=== PATIENT | female | born 1980 | race Caucasian/White ===

== ENCOUNTER 2025-03-06 19:44 | Emergency (ER) | payer MEDICAID, OTHER ==
[~2025-03-06] VITALS: Ht 165.1 cm; Wt 55.9 kg
[2025-03-06 20:05] VITALS: BP 117/70; PULSE 95; RESP 18; TEMP 98.5; O2SAT 99
--- NOTE | 2025-03-06 20:14 | ED.PDOC ---
History of Present Illness(SKN HPI Comments A 44 year-old female, BIB wheelchair, presents to the ED with a chief complaint of wound to left cobian s/p insect bite days ago. Patient states the insect that bit her is unknown. Patient reports swelling and redness at the site but denies any bleeding or drainage. Patient additionally reports using Peroxide and Neosporin with no associated alleviating factors. Patient has no further complaints at this time and otherwise denies further associated symptoms of N/V, fever, chills, LOC, or chest pain. Vital signs were stable. Chief Complaint: Lower Extremity Time Seen by MD: 20:00 History of Present Illness: Nurses Notes, Medications, Allergies Allergies: Coded Allergies: Amoxicillin (Verified Allergy, Unknown, 03/06/25) Cephalexin (Verified Allergy, Unknown, 03/06/25) Codeine (Verified Allergy, Unknown, 03/06/25) Fentanyl (Verified Allergy, Unknown, 03/06/25) Information Source: Patient Mode of Arrival: Wheelchair Severity: Moderate Timing: Days Duration: Since onset Prehospital treatment: None Location: Other (left cobian) Mechanism: Insect (unknown insect) Retained Foreign Body: No Tetanus: >5 Years (2005 ) Associated Signs and Symptoms: Redness, Swelling Past Medical History PAST MEDICAL HISTORY: Denies Surgical History: Denies all surgeries 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 Family History Family History: Reviewed,noncontributory to illness, No family hx of Cancer, No family hx of DM, No family hx of Heart lina, No family hx of HTN, No family hx ofKidney lina, No family hx of Liver lina, No family hx of Lung lina, No family hx of Stroke Social History Smoker: Non-Smoker Alcohol: Denies ETOH Use Drugs: Denies Drug Use Lives In: Home Constitutional: denies: chills, diaphoresis, fatigue, fever, malaise, sweats, weakness, others EENTM: denies: blurred vision, double vision, ear bleeding, ear discharge, ear drainage, ear pain, ear ringing, eye pain, eye redness, hearing loss, mouth pain, mouth swelling, nasal discharge, nose bleeding, nose congestion, nose pain, photophobia, tearing, throat pain, throat swelling, voice changes, others Respiratory: denies: cough, hemoptysis, orthopnea, SOB at rest, shortness of breath, SOB with excertion, stridor, wheezing, others Cardiovascular: denies: chest pain, dizzy spells, diaphoresis, Dyspnea on exertion, edema, irregular heart beat, left arm pain, lightheadedness, palpitations, PND, syncope, others Gastrointestinal: denies: abdomen distended, abdominal pain, blood streaked bowels, constipated, diarrhea, dysphagia, difficulty swallowing, hematemesis, melena, nausea, poor appetite, poor fluid intake, rectal bleeding, rectal pain, vomiting, others Genitourinary: denies: abnormal vagina bleeding, burning, dyspareunia, dysuria, flank pain, frequency, hematuria, incontinence, pain, , vagina discharge, urgency, others Neurological: denies: dizziness, fainting, headache, left sided numbness, left sided weakness, numbness, paresthesia, pre-existing deficit, right sided numbness, right sided weakness, seizure, speech problems, tingling, tremors, weakness, others Musculoskeletal: denies: back pain, gout, joint pain, joint swelling, muscle pain, muscle stiffness, neck pain, others Integumetry: reports: wounds (redness and swelling to wound on left cobian); denies: bruises, change in color, change in hair/nails, dryness, laceration, lesions, lumps, rash, others Allergic/Immunocompromised: denies: Difficulty Healing, Frequent Infections, Hives, Itching, others Hematologic/Lymphatic: denies: anemia, blood clots, easy bleeding, easy bruising, swollen glands, others Endocrine: denies: excessive hunger, excessive sweating, excessive thirst, excessive urination, flushing, intolerance to cold, intolerance to heat, unexplained weight gain, unexplained weight loss, others Psychiatric: denies: anxiety, bipolar disorder, depression, hopeless, panic disorder, schizophrenia, sleepless, suicidal, others All Other Systems: Reviewed and Negative Physical Exam General Appearance: Moderate Distress ([id number] distress due to pain related to the left cobian wound.), Normal HEENT: Normal ENT Inspection, Pharynx Normal, TMs Normal Neck: Full Range of Motion, Non-Tender, Normal, Normal Inspection Respiratory: Chest Non-Tender, Lungs Clear, No Accessory Muscle Use, No Respiratory Distress, Normal Breath Sounds Cardiovascular: No Edema, No JVD, No Murmur, No Gallop, Normal Peripheral Pulses, Regular Rate/Rhythm Breast Exam: Deferred Gastrointestinal: No Organomegaly, Non Tender, No Pulsatile Mass, Normal Bowel Sounds, Soft Genitalia: Deferred Pelvic: Deferred Rectal: Deferred Extremities: Other (Patient displays a crusted central area on a inflamed and infected insect bite to the left cobian. Localized edema and erythema. Tenderness to palpation throughout. No drainage appreciated.) Neurologic: Alert, No Motor Deficits, Normal Affect, Normal Mood, No Sensory Deficits Cerebellar Function: Normal Reflexes: Normal Skin: Dry, Normal Color, Warm Lymphatic: No Adenopathy Was a procedure done? Was a procedure done?: No Differential Diagnosis (INTG) Differential Diagnosis: Abrasion, Cellulitis, Insect Envenomation Abscess: Bacteremia Differential Diagnosis: Puncture Wound X-Ray, Labs, Meds, VS Vital Signs Date Time Temp Pulse Resp B/P (MAP) Pulse Ox O2 Delivery O2 Flow Rate FiO2 03/06/25 20:05 98.5 95 18 117/70 (86) 99 98.5 Lab Test 03/06/25 20:23 Range/Units White Blood Count 11.3 H 4.4-10.8 10^3/uL Red Blood Count 4.77 4.0-5.20 10^6/uL Hemoglobin 13.5 12.2-16.2 g/dL Hematocrit 41.0 36.0-46.0 % Mean Corpuscular Volume 86.0 80.0-100.0 fL Mean Corpuscular Hemoglobin 28.3 28.0-32.0 pg Mean Corpuscular Hemoglobin Concent 32.9 32.0-36.0 g/dL Red Cell Distribution Width 19.0 H 11.8-14.3 % Platelet Count 322 140-450 10^3/uL Mean Platelet Volume 9.0 6.9-10.8 fL Neutrophils (%) (Auto) 62.8 37.0-80.0 % Lymphocytes (%) (Auto) 24.4 10.0-50.0 % Monocytes (%) (Auto) 7.3 0.0-12.0 % Eosinophils (%) (Auto) 4.4 0.0-7.0 % Basophils (%) (Auto) 1.1 0.0-2.0 % Neutrophils # (Auto) 7.1 1.6-8.6 10 ^3/uL Lymphocytes # (Auto) 2.8 0.4-5.4 10 ^3/uL Monocytes # (Auto) 0.8 0-1.3 10 ^3/uL Eosinophils # (Auto) 0.5 0-0.8 10 ^3/uL Basophils # (Auto) 0.1 0-0.2 10 ^3/uL Nucleated Red Blood Cells 0.0 % Sodium Level 142 136-145 mmol/L Potassium Level 2.7 L 3.5-5.1 mmol/L Chloride Level 112 H 98-107 mmol/L Carbon Dioxide Level 23 20-31 mmol/L Anion Gap 7 5-15 Blood Urea Nitrogen 7 L 9-23 mg/dL Creatinine 0.64 0.550-1.02 mg/dL Glomerular Filtration Rate Calc 110 >90 mL/min BUN/Creatinine Ratio 10.9 10.0-20.0 Serum Glucose 107 H 74-106 mg/dL Calcium Level 9.1 8.7-10.4 mg/dL X-Ray, Labs, Meds, VS Comment All studies performed the ED were evaluated by me personally. Serum laboratories studies were utilized to evaluate for any septic or bacteremia concerns. A hypokalemic state was noted and patient was provided with potassium to address that concern. While waiting on the completion of laboratories, nursing informed me that the patient eloped with the facility. Time of 1ST Reevaluation: 22:32 Reevaluation 1ST: Improved Consultation: PCP Patient Education/Counseling: Diagnosis, Treatment Family Education/Counseling: Diagnosis, Treatment Medical Screening: No EMC Exist At This Time SEPSIS Sepsis Screen Recent Procedure: No On Antibiotic Therapy: No Respiratory Rate >20: No Heart Rate >90: No Temp<36 C (96.8 F) or >38.3 C: No SBP <90 or MAP <65 mmHG: No New Acute Mental Status Change: No Is the patient on CPAP, BIPAP,: No Vital Signs Date Time Temp Pulse Resp B/P (MAP) Pulse Ox O2 Delivery O2 Flow Rate FiO2 03/06/25 20:05 98.5 95 18 117/70 (86) 99 98.5 Laboratory Tests Test 03/06/25 20:23 White Blood Count 11.3 10^3/uL (4.4-10.8) H Departure 1 Departure Time of Disposition: 22:32 Impression: Primary Impression: Insect bite Additional Impression: Cellulitis Disposition: 07 LEFT AWOL/ELOPED Condition: Fair Discharged With: Self, Friend Critical Care Note Critical Care Time?: No Stability Stability form required: No Heart Score Heart Score: Heart Score Response (Comments) Value History N/A 0 EKG N/A 0 Age N/A 0 Risk Factors N/A 0 Troponin N/A 0 Total 0 I personally scribed for KI,AVINASH B PAC ([email or web address]) on 03/06/25 at 20:13. Electronically submitted by Ayala Lopez ([email or web address]). I personally scribed for KI,AVINASH B PAC ([email or web address]) on 03/06/25 at 20:20. Electronically submitted by Ayala Lopez ([employer]). I personally scribed for KI,AVINASH B PAC ([email or web address]) on 03/06/25 at 20:21. Electronically submitted by Ayala Lopez ([employer]). I personally scribed for KI,AVINASH B PAC ([email or web address]) on 03/06/25 at 20:27. Electronically submitted by Ayala Lopez ([email or web address]). KI,AVINASH B PAC Mar 06, 2025 20:13
[2025-03-06] MEDS ORDERED: TETANUS-DIPTH-ACEL PERTUSSIS 0.5ML SYR Tdap IM ONE (20:15)
[2025-03-06] MEDS ORDERED: KETOROLAC TROMETH 60MG/2ML VIAL IM ONE (20:15)
[2025-03-06 20:50] LABS: Hematocrit 41.0 % (36.0-46.0); Hemoglobin 13.5 g/dL (12.2-16.2); Mean Corpuscular Hemoglobin 28.3 pg (28.0-32.0); Mean Corpuscular Volume 86.0 fL (80.0-100.0); Nucleated Red Blood Cells % 0.0 %
[2025-03-06 21:00] LABS: Sodium 142 mmol/L (136-145)
[2025-03-06 21:01] LABS: Anion Gap 7 (5-15); Calcium 9.1 mg/dL (8.7-10.4); Carbon Dioxide 23 mmol/L (20-31)
[2025-03-06 21:03] LABS: Chloride 112 mmol/L (98-107); Potassium 2.7 mmol/L (3.5-5.1)
[2025-03-06 21:06] LABS: BUN/Creatinine Ratio 10.9 (10.0-20.0)
[2025-03-06 21:10] LABS: Blood Urea Nitrogen 7 mg/dL (9-23); Glucose 107 mg/dL (74-106)
[2025-03-06] MEDS ORDERED: POTASSIUM EFFERVESENT TAB 25 MEQ PO ONE (21:15)
== END 2025-03-06 21:40 | disposition left against medical advice (07) ==
LOC: ER 19:44
DX: L03.116 Cellulitis of left lower limb (principal); Z88.0 Allergy status to penicillin; Z88.1 Allergy status to other antibiotic agents; Z88.5 Allergy status to narcotic agent; W57.XXXA Bitten or stung by nonvenomous insect and other nonvenomous arthropods, initial encounter; Y93.89 Activity, other specified; Y92.89 Other specified places as the place of occurrence of the external cause; Y99.8 Other external cause status
CPT/HCPCS: 36415; 80048; 85025

== ENCOUNTER 2025-03-11 07:41 | Emergency (ER) | payer MEDICAID ==
[~2025-03-11] VITALS: Ht 165.1 cm; Wt 66.0 kg
--- NOTE | 2025-03-11 08:13 | ED.PDOC ---
History of Present Illness(SKN HPI Comments A 44 year-old female presents to the ED with a chief complaint of puncture wound to left cobian s/p insect bite X1 week ago. Patient states the insect that bit her is unknown. Patient reports swelling, redness, itchiness, and drainage at the site. Patient additionally reports using Peroxide and Neosporin with no associated alleviating factors. Patient notes coming to the ED 04/06, but ELOPED without receiving treatment. Patient came to the ED today upon worsening symptoms. Still able to ambulate w/ out assistive devices. Patient has no further complaints at this time and otherwise denies further associated symptoms of N/V, fever, chills, LOC, or chest pain. Vital signs were stable. Chief Complaint: Insect Bite Time Seen by MD: 08:12 History of Present Illness: Nurses Notes, Medications, Allergies Allergies: Coded Allergies: Amoxicillin (Verified Allergy, Unknown, 03/06/25) Cephalexin (Verified Allergy, Unknown, 03/06/25) Codeine (Verified Allergy, Unknown, 03/06/25) Fentanyl (Verified Allergy, Unknown, 03/06/25) Information Source: Patient Mode of Arrival: Ambulatory Severity: Moderate Timing: Weeks Duration: Since onset Prehospital treatment: None Location: Other (Left Calf ) Mechanism: Insect, Spider Occurence: Outdoors Object: Unknown Wound Type: Puncture Tetanus: UTD Associated Signs and Symptoms: Redness, Pus, Other (Itchiness / Drainage ) Past Medical History PAST MEDICAL HISTORY: Denies Surgical History: Denies all surgeries 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 Family History Family History: Reviewed,noncontributory to illness, No family hx of Cancer, No family hx of DM, No family hx of Heart lina, No family hx of HTN, No family hx ofKidney lina, No family hx of Liver lina, No family hx of Lung lina, No family hx of Stroke Social History Smoker: Non-Smoker Alcohol: Denies ETOH Use Drugs: Denies Drug Use Lives In: Home Constitutional: denies: chills, diaphoresis, fatigue, fever, malaise, sweats, weakness, others EENTM: denies: blurred vision, double vision, ear bleeding, ear discharge, ear drainage, ear pain, ear ringing, eye pain, eye redness, hearing loss, mouth pain, mouth swelling, nasal discharge, nose bleeding, nose congestion, nose pain, photophobia, tearing, throat pain, throat swelling, voice changes, others Respiratory: denies: cough, hemoptysis, orthopnea, SOB at rest, shortness of breath, SOB with excertion, stridor, wheezing, others Cardiovascular: denies: chest pain, dizzy spells, diaphoresis, Dyspnea on exertion, edema, irregular heart beat, left arm pain, lightheadedness, palpitations, PND, syncope, others Gastrointestinal: denies: abdomen distended, abdominal pain, blood streaked bowels, constipated, diarrhea, dysphagia, difficulty swallowing, hematemesis, melena, nausea, poor appetite, poor fluid intake, rectal bleeding, rectal pain, vomiting, others Genitourinary: denies: abnormal vagina bleeding, burning, dyspareunia, dysuria, flank pain, frequency, hematuria, incontinence, pain, , vagina discharge, urgency, others Neurological: denies: dizziness, fainting, headache, left sided numbness, left sided weakness, numbness, paresthesia, pre-existing deficit, right sided numbness, right sided weakness, seizure, speech problems, tingling, tremors, weakness, others Musculoskeletal: denies: back pain, gout, joint pain, joint swelling, muscle pain, muscle stiffness, neck pain, others Integumetry: reports: others (Per HPI ); denies: bruises, change in color, change in hair/nails, dryness, laceration, lesions, lumps, rash, wounds Allergic/Immunocompromised: denies: Difficulty Healing, Frequent Infections, Hives, Itching, others Hematologic/Lymphatic: denies: anemia, blood clots, easy bleeding, easy bruising, swollen glands, others Endocrine: denies: excessive hunger, excessive sweating, excessive thirst, excessive urination, flushing, intolerance to cold, intolerance to heat, unexplained weight gain, unexplained weight loss, others Psychiatric: denies: anxiety, bipolar disorder, depression, hopeless, panic disorder, schizophrenia, sleepless, suicidal, others All Other Systems: Reviewed and Negative Physical Exam General Appearance: Moderate Distress, Normal HEENT: Normal ENT Inspection, Pharynx Normal, TMs Normal Neck: Full Range of Motion, Non-Tender, Normal, Normal Inspection Respiratory: Chest Non-Tender, Lungs Clear, No Accessory Muscle Use, No Respiratory Distress, Normal Breath Sounds Cardiovascular: No Edema, No JVD, No Murmur, No Gallop, Normal Peripheral Pulses, Regular Rate/Rhythm Breast Exam: Deferred Gastrointestinal: No Organomegaly, Non Tender, No Pulsatile Mass, Normal Bowel Sounds, Soft Genitalia: Deferred Pelvic: Deferred Rectal: Deferred Extremities: No calf tenderness, Normal capillary refill, Normal inspection, Normal range of motion, Non-tender, No pedal edema Musculoskeletal : Location: Left Extremity Location: Calf Apperance: Other (1cm puncture wound; Localized fluctuance to palpation; Surrounding Erythema ) Neurologic: Alert, music leader II-XII nml as Tested, No Motor Deficits, Normal Affect, Normal Mood, No Sensory Deficits Cerebellar Function: Normal Reflexes: Normal Skin: Dry, Normal Color Lymphatic: No Adenopathy Was a procedure done? Was a procedure done?: No Differential Diagnosis (INTG) Differential Diagnosis: Abrasion, Insect Envenomation, Laceration, Puncture Wound X-Ray, Labs, Meds, VS Vital Signs Date Time Temp Pulse Resp B/P (MAP) Pulse Ox O2 Delivery O2 Flow Rate FiO2 03/11/25 10:03 115 18 98 Room Air 03/11/25 09:48 98.9 115 18 144/86 (105) 98 98.9 03/11/25 08:35 97.3 111 20 177/97 (123) 97 97.3 Lab Test 03/11/25 08:15 03/11/25 08:04 Range/Units White Blood Count 8.5 4.4-10.8 10^3/uL Red Blood Count 5.02 4.0-5.20 10^6/uL Hemoglobin 14.4 12.2-16.2 g/dL Hematocrit 42.6 36.0-46.0 % Mean Corpuscular Volume 84.9 80.0-100.0 fL Mean Corpuscular Hemoglobin 28.7 28.0-32.0 pg Mean Corpuscular Hemoglobin Concent 33.8 32.0-36.0 g/dL Red Cell Distribution Width 19.2 H 11.8-14.3 % Platelet Count 504 H 140-450 10^3/uL Mean Platelet Volume 7.6 6.9-10.8 fL Neutrophils (%) (Auto) 75.9 37.0-80.0 % Lymphocytes (%) (Auto) 15.4 10.0-50.0 % Monocytes (%) (Auto) 7.0 0.0-12.0 % Eosinophils (%) (Auto) 1.2 0.0-7.0 % Basophils (%) (Auto) 0.5 0.0-2.0 % Neutrophils # (Auto) 6.4 1.6-8.6 10 ^3/uL Lymphocytes # (Auto) 1.3 0.4-5.4 10 ^3/uL Monocytes # (Auto) 0.6 0-1.3 10 ^3/uL Eosinophils # (Auto) 0.1 0-0.8 10 ^3/uL Basophils # (Auto) 0 0-0.2 10 ^3/uL Nucleated Red Blood Cells 0.1 % Erythrocyte Sedimentation Rate 4 0-20 mm/hr Sodium Level 142 136-145 mmol/L Potassium Level 3.0 L 3.5-5.1 mmol/L Chloride Level 105 98-107 mmol/L Carbon Dioxide Level 28 20-31 mmol/L Anion Gap 9 5-15 Blood Urea Nitrogen 7 L 9-23 mg/dL Creatinine 0.66 0.550-1.02 mg/dL Glomerular Filtration Rate Calc 109 >90 mL/min BUN/Creatinine Ratio 10.6 10.0-20.0 Serum Glucose 100 74-106 mg/dL Lactic Acid Level 1.9 0.4-2.0 mmol/L Calcium Level 8.9 8.7-10.4 mg/dL C-Reactive Protein High Sensitivity 0.39 <1.0 mg/dL Urine Color Light-yellow Yellow Urine Clarity Turbid H Clear Urine pH 7.5 5.0-9.0 Urine Specific [place] 1.021 1.001-1.035 Urine Protein Trace H Negative Urine Ketones Negative Negative Urine Blood 2+ H Negative /uL Urine Nitrite Negative Negative Urine Bilirubin Negative Negative Urine Urobilinogen Normal Negative mg/dL Urine Leukocyte Esterase 1+ Negative /uL Urine RBC 1 0 - 4 /hpf Urine Microscopic WBC 8 H 0-5 /HPF Urine Squamous Epithelial Cells Few <5 /hpf Urine Bacteria None seen None Seen /hpf Urine Glucose Normal Normal mg/dL Urine Test Negative Negative PATIENT: CHLOE SOTO DACCT: [id number]: [id number] : 1980 LOC: ER ROOM / BED: / AGE / SEX: 44 / F ADM STATUS: REG ER SERVICE [id number] ORDERING PHYSICIAN: ZUNILDA MANZO NP PROCEDURE(s): LE1CR - LT LOWER EXTREMITY W CONTRAS REASON: r/o abscess formation ORDER NUMBER(s): [id number], ACCESSION NUMBER(s): [id number] INDICATION: abscess formation COMPARISON: None TECHNIQUE: CT of the left lower extremity was performed with contrast. Volume transverse images were obtained and reconstructed in multiple planes using bone and soft tissue algorithms. Radiation Dose Information: CT Dose: CTDI volume is 7.75 mGy. Dose-length product is 505.2 mGy*cm FINDINGS: The alignment is normal. The joint spaces are normal. There is no fracture, dislocation or aggressive osseous lesion. Trace knee joint effusion. Jerome's cyst is present measuring 4.7 cm. Diffuse subcutaneous soft-tissue edema and swelling. Small soft-tissue ulceration in the anterior distal calf. IMPRESSION: Severe diffuse subcutaneous soft-tissue edema and swelling most prominent in the anterior distal calf corresponding to probable insect bite where there is small ulceration of the skin. No discrete abscess formation. No acute fracture or dislocation. ATED BY: DEEPAK CALZADA MD DICTATED DATE/TIME: 03/11/25 111 SIGNED BY: DEEPAK CALZADA MD SIGNED DATE/TIME: 03/11/251109 X-Ray, Labs, Meds, VS Comment A 44 year-old female presents to the ED with a chief complaint of puncture wound to left cobian s/p insect bite X1 week ago. Patient arrives alert and oriented, ABC's intact, afebrile, vital signs stable, saturating well in room air Peripheral IV insertion+ labs were ordered. CBC was ordered to exclude anemia, blood loss, or infection. BMP was ordered to exclude electrolyte abnormalities, renal failure, dehydration, hyperglycemia Urinalysis was ordered to rule out UTI or hematuria. CT of the extremity showed: IMPRESSION: Severe diffuse subcutaneous soft-tissue edema and swelling most prominent in the anterior distal calf corresponding to probable insect bite where there is small ulceration of the skin. No discrete abscess formation. No acute fracture or dislocation. Patient presents with erythema, warmth, and pain to the shing s/p insect bite. History and findings consistent with cellulitis. The patient did not require an incision and drainage. Considered Abscess, Osteomyelitis The patient will be treated with antibiotics. The patient was advised to return 24-48 hours for wound check. Sooner if symptoms worsen. Patient is stable for discharge at this time. External notes reviewed. Test results and diagnostic imaging interpreted. All diagnostic findings, discharge care, education and instructions provided Follow-up with PCP in 2 to 3 days Patient verbalized understanding and agreed to treatment plan Vital signs stable, afebrile, no acute distress noted Patient ambulatory with strong steady gait Advised to return precautions for any new or worsening symptoms, return to ER immediately for re-evaluation Patient is aware that the purpose of this visit was for an acute medical emergency requiring emergent stabilization. Chronic conditions, including malignancies have not been ruled out. Patient is instructed to follow up with PCP as directed and discharge instructions for continued care and workup. If unable to arrange follow-up, patient is to return to the emergency department for reassessment. Patient (parent or legal guardian if applicable) was given verbal and written discharge instructions and acknowledges understanding. Time of 1ST Reevaluation: 11:46 Reevaluation 1ST: Improved Patient Education/Counseling: Diagnosis, Treatment Family Education/Counseling: No Family Present Medical Screening: No EMC Exist At This Time SEPSIS Sepsis Screen Physician Orders Heplock Iv (03/11/25 ) Lt Lower Extremity W Contras (03/11/25 09:19) Vital Signs Date Time Temp Pulse Resp B/P (MAP) Pulse Ox O2 Delivery O2 Flow Rate FiO2 03/11/25 10:03 115 18 98 Room Air 03/11/25 09:48 98.9 115 18 144/86 (105) 98 98.9 03/11/25 08:35 97.3 111 20 177/97 (123) 97 97.3 Laboratory Tests Test 03/11/25 08:15 Lactic Acid Level 1.9 mmol/L (0.4-2.0) White Blood Count 8.5 10^3/uL (4.4-10.8) Departure 1 Departure Time of Disposition: 11:50 Impression: Primary Impression: Insect bite Qualified Codes: S80.862A - Insect bite (nonvenomous), left lower leg, initial encounter; W57.XXXA - Bitten or stung by nonvenomous insect and other nonvenomous arthropods, initial encounter Additional Impressions: Cellulitis Qualified Codes: L03.116 - Cellulitis of left lower limb Jerome cyst Qualified Codes: M71.22 - Synovial cyst of popliteal space [Jerome], left knee Disposition: HOME / SELF CARE / HOMELESS Condition: Stable e-Prescriptions Sulfamethoxazole W/Trimethopri (Bactrim Ds Tablet) 1 Tab Tb 1 TAB PO BID for 10 Days, #20 TAB 0 Refills Prov: ZUNILDA MANZO NP 03/11/25 Discharged With: Self Critical Care Note Critical Care Time?: No Stability Stability form required: No Heart Score Heart Score: Heart Score Response (Comments) Value History N/A 0 EKG N/A 0 Age N/A 0 Risk Factors N/A 0 Troponin N/A 0 Total 0 I personally scribed for ZUNILDA MANZO NP ([email or web address]) on 03/11/25 at 08:13. Electronically submitted by Ayala Lopez ([employer]). I personally scribed for ZUNILDA MANZO NP (NICHOLEOMA) on 03/11/25 at 08:19. Electr onically submitted by Ayala Lopez ([employer]). I personally scribed for ZUNILDA MANZO NP ([email or web address]) on 03/11/25 at 08:53. Elec tronically submitted by Ayala Lopez ([employer]). ZUNILDA MANZO NP Mar 11, 2025 08:13
[2025-03-11 08:25] LABS: Hematocrit 42.6 % (36.0-46.0); Hemoglobin 14.4 g/dL (12.2-16.2); Mean Corpuscular Hemoglobin 28.7 pg (28.0-32.0); Mean Corpuscular Volume 84.9 fL (80.0-100.0); Nucleated Red Blood Cells % 0.1 %
[2025-03-11 08:36] LABS: Chloride 105 mmol/L (98-107); Sodium 142 mmol/L (136-145)
[2025-03-11 08:37] LABS: Anion Gap 9 (5-15); Carbon Dioxide 28 mmol/L (20-31)
[2025-03-11 08:38] LABS: Calcium 8.9 mg/dL (8.7-10.4); Potassium 3.0 mmol/L (3.5-5.1)
[2025-03-11 08:42] LABS: BUN/Creatinine Ratio 10.6 (10.0-20.0); Glucose 100 mg/dL (74-106)
[2025-03-11 08:46] LABS: Blood Urea Nitrogen 7 mg/dL (9-23)
[2025-03-11 09:12] LABS: Urine Protein, UAD TRACE (Negative)
[2025-03-11 09:48] VITALS: BP 144/86; TEMP 98.9
[2025-03-11] MEDS: IOHEXOL 300 MG/ML 100ML BOTTLE IJ ONE (09:57)
[2025-03-11 10:03] VITALS: PULSE 115; RESP 18; O2SAT 98
--- NOTE | 2025-03-11 11:13 | DVH ---
INDICATION: abscess formation COMPARISON: None TECHNIQUE: CT of the left lower extremity was performed with contrast. Volume transverse images were obtained and reconstructed in multiple planes using bone and soft tissue algorithms. Radiation Dose Information: CT Dose: CTDI volume is 7.75 mGy. Dose-length product is 505.2 mGy*cm FINDINGS: The alignment is normal. The joint spaces are normal. There is no fracture, dislocation or aggressive osseous lesion. Trace knee joint effusion. Jerome's cyst is present measuring 4.7 cm. Diffuse subcutaneous soft-tissue edema and swelling. Small soft-tissue ulceration in the anterior dis nereyda calf. IMPRESSION: Severe diffuse subcutaneous soft-tissue edema and swelling most prominent in the anterior distal calf corresponding to probable insect bite where there is small ulceration of the skin. No discrete abscess formation. No acute fracture or dislocation.
[2025-03-11] MEDS ORDERED: BACDST PO (11:50)
== END 2025-03-11 11:59 | disposition home or self-care (01) ==
LOC: ER 07:41
DX: S81.832A Puncture wound without foreign body, left lower leg, initial encounter (principal); S80.862A Insect bite (nonvenomous), left lower leg, initial encounter; L03.116 Cellulitis of left lower limb; L23.6 Allergic contact dermatitis due to food in contact with the skin; Z88.5 Allergy status to narcotic agent; Z88.1 Allergy status to other antibiotic agents; Z88.0 Allergy status to penicillin; W57.XXXA Bitten or stung by nonvenomous insect and other nonvenomous arthropods, initial encounter; Y93.89 Activity, other specified; Y92.89 Other specified places as the place of occurrence of the external cause; Y99.8 Other external cause status
CPT/HCPCS: 36415; 73701; 80048; 81001; 81025; 83605; 85025; 85652; 86141; 99285; Q9967